=== PATIENT | male | born 1935 | race Caucasian/White ===

== ENCOUNTER 2017-06-16 15:30 | Inpatient (IN) | payer MEDICARE ==
[~2017-06-16] VITALS: Ht 188 cm; Wt 89.0 kg
[2017-06-16 15:55] VITALS: BP 93/66
[2017-06-16] MEDS ORDERED: ACETAMINOPHEN 325 MG TABLET PO PRN (16:30)
[2017-06-16] MEDS ORDERED: MAGNESIUM HYDROXIDE 2,400 MG/30 ML ORAL.SUSP. PO PRN (16:30)
[2017-06-16] MEDS ORDERED: METHYL SALICYLATE/MENTHOL TOPICAL OINTMENT 29GM TUBE. TP PRN (16:30)
[2017-06-16] MEDS ORDERED: MAG HYDROX/AL HYDROX/SIMETH 30 ML ORAL.SUSP PO PRN (16:30)
[2017-06-16] MEDS ORDERED: ASPI-630 PO (17:24)
[2017-06-16] MEDS ORDERED: DILT180C29 PO (17:24)
[2017-06-16] MEDS ORDERED: CARV6.252 PO (17:24)
[2017-06-16] MEDS ORDERED: ISOS30TA4 PO (17:24)
[2017-06-16] MEDS ORDERED: PANT40TA3 PO (17:24)
[2017-06-16] MEDS ORDERED: NITR0.4T22 SL (17:24)
[2017-06-16] MEDS ORDERED: TRAZ-90 PO (17:24)
[2017-06-16] MEDS ORDERED: WARF-31 PO (17:24)
[2017-06-16] MEDS ORDERED: NITROGLYCERIN SUBLINGUAL 0.4 MG BOTTLE OF 25. SL PRN (17:30)
[2017-06-16] MEDS: WARFARIN 5 MG TABLET. PO SCH (20:01)
[2017-06-16] MEDS: traZODone 100 MG TABLET. PO SCH (20:01)
--- NOTE | 2017-06-16 20:46 | PDOC ---
Exam Note: Junior Note: Please also refer to the separate dictated note~for this date of service dictated separately.~Patient seen individually. Discussed the patient with Nursing staff reviewed the chart.~Reviewed interim history and current functioning. Reviewed vital signs,~Labs/ Radiology~and current medications noted below. Continue current treatment with the changes noted in the dictated addendum note Assessment: Vital Signs: Vital Signs Date Time Temp Pulse Resp B/P (MAP) Pulse Ox O2 Delivery O2 Flow Rate FiO2 06/16/17 15:55 97.0 74 16 93/66 (75) 95 Labs: Laboratory Tests Test 06/16/17 16:55 06/16/17 18:00 Magnesium Level 2.0 mg/dL (1.8-2.4) Prothrombin Time 16.2 SEC (9.4-11.4) H Prothrombin Time INR 1.6 (0.9-1.1) H Current Medications: Meds: Current Medications Acetaminophen (Tylenol) 650 mg PRN Q6HRS PRN PO PAIN / TEMP; Start 06/16/17 at 16:30 Multi-Ingredient Ointment (Analgesic [place]) 1 pavel PRN QID PRN TP MUSCLE PAIN; Start 06/16/17 at 16:30 Al Hydroxide/Mg Hydroxide (Mylanta Plus Xs) 15 ml PRN AFTMEALHC PRN PO DYSPEPSIA; Start 06/16/17 at 16:30 Magnesium Hydroxide (Milk Of Magnesia) 2,400 mg PRN QHS PRN PO CONSTIPATION; Start 06/16/17 at 16:30 Isosorbide Mononitrate (Imdur) 30 mg DAILY PO ; Start 06/17/17 at 09:00 Nitroglycerin (Nitrostat) 0.4 mg PRN Q5MIN PRN SL CHEST PAIN; Start 06/16/17 at 17:30 Aspirin (Children'S Aspirin) 81 mg DAILYWBKFT PO ; Start 06/17/17 at 08:00 Carvedilol (Coreg) 6.25 mg DAILY08 PO ; Start 06/17/17 at 08:00 Diltiazem HCl (Cardizem 24hr Cd) 180 mg DAILY PO ; Start 06/17/17 at 09:00 Pantoprazole Sodium (Protonix) 40 mg DAILYAC PO ; Start 06/17/17 at 07:30 Trazodone HCl (Desyrel) 100 mg QHS PO Last administered on 06/16/17at 20:01; Start 06/16/17 at 21:00 Warfarin Sodium (Coumadin) 5 mg DAILY@1600 PO Last administered on 06/16/17at 20 :01; Start 06/16/17 at 19:30 Warfarin Sodium (Coumadin Per Pharmacy) 1 each PRN DAILY PRN MC SEE COMMENTS Last administered on 06/16/17at 19:30; Start 06/16/17 at 18:00 Active Scripts Active Reported Trazodone Hcl 100 Mg Tablet 100 Mg PO QHS Diltiazem 24HR Cd (Diltiazem Hcl) 180 Mg Cap.er.24h 180 Mg PO DAILY Warfarin Sodium 5 Mg Tablet 5 Mg PO DAILY16 Protonix (Pantoprazole Sodium) 40 Mg Tablet.dr 40 Mg PO DAILYAC NITROGLYCERIN SubLingual (Nitroglycerin) 0.4 Mg Tab.subl 0.4 Mg SL PRN Q5MIN PRN Isosorbide Mononitrate Er (Isosorbide Mononitrate) 30 Mg Tab.er.24h 30 Mg PO DAILY Carvedilol 6.25 Mg Tablet 6.25 Mg PO DAILY08 Aspirin 81 Mg Tab.chew 81 Mg PO DAILY I have reviewed the current psychotropics carefully including drug interactions. Risk benefit ratio favors no change other than as noted in my dictated progress note. Diagnosis: Problems: (1) MDD (major depressive disorder) HEMANT GUO MD June 16, 2017 20:46
[2017-06-17 01:08] LABS: T3 TOTAL 64 ng/dL (71-180)
[2017-06-17 02:07] LABS: HEMOGLOBIN A1C 5.5 % (4.8-5.6)
[2017-06-17 05:54] VITALS: BP 119/70
[2017-06-17] MEDS: PANTOPRAZOLE 40 MG TABLET. PO SCH ×2 (07:30→09:05)
[2017-06-17] MEDS: ASPIRIN 81 MG TAB.CHEW PO SCH ×2 (08:00→09:05)
[2017-06-17] MEDS: ISOSORBIDE MONONITRATE ER 30 MG TAB.ER.24H PO SCH (09:00)
[2017-06-17] MEDS: CARVEDILOL 6.25 MG TABLET PO SCH (09:05)
[2017-06-17 11:10] LABS: THYROID STIM HORMONE (TSH) 1.744 uIU/mL (0.358-3.740)
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
[2017-06-17 16:06] VITALS: BP 116/73
[2017-06-17] MEDS: WARFARIN 5 MG TABLET. PO SCH (16:11)
[2017-06-17] MEDS: traZODone 100 MG TABLET. PO SCH (21:20)
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
--- NOTE | 2017-06-17 22:50 | PDOC ---
Exam Note: Junior Note: Please also refer to the separate dictated note~for this date of service dictated separately.~Patient seen individually. Discussed the patient with Nursing staff reviewed the chart.~Reviewed interim history and current functioning. Reviewed vital signs,~Labs/ Radiology~and current medications noted below. Continue current treatment with the changes noted in the dictated addendum note Assessment: Vital Signs: Vital Signs Date Time Temp Pulse Resp B/P (MAP) Pulse Ox O2 Delivery O2 Flow Rate FiO2 06/17/17 16:06 97.9 52 18 116/73 (87) 96 I&O Intake and Output 06/17/17 07:00 Intake Total 480 ml Balance 480 ml Intake Oral 480 ml Labs: Laboratory Tests Test 06/17/17 08:14 Prothrombin Time 17.7 SEC (9.4-11.4) H Prothrombin Time INR 1.7 (0.9-1.1) H Current Medications: Meds: Current Medications Acetaminophen (Tylenol) 650 mg PRN Q6HRS PRN PO PAIN / TEMP; Start 06/16/17 at 16:30 Multi-Ingredient Ointment (Analgesic [place]) 1 pavel PRN QID PRN TP MUSCLE PAIN; Start 06/16/17 at 16:30 Al Hydroxide/Mg Hydroxide (Mylanta Plus Xs) 15 ml PRN AFTMEALHC PRN PO DYSPEPSIA; Start 06/16/17 at 16:30 Magnesium Hydroxide (Milk Of Magnesia) 2,400 mg PRN QHS PRN PO CONSTIPATION; Start 06/16/17 at 16:30 Isosorbide Mononitrate (Imdur) 30 mg DAILY PO ; Start 06/17/17 at 09:00 Nitroglycerin (Nitrostat) 0.4 mg PRN Q5MIN PRN SL CHEST PAIN; Start 06/16/17 at 17:30 Aspirin (Children'S Aspirin) 81 mg DAILYWBKFT PO ; Start 06/17/17 at 08:00 Carvedilol (Coreg) 6.25 mg DAILY08 PO Last administered on 06/17/17at 09:05; Start 06/17/17 at 08:00 Diltiazem HCl (Cardizem 24hr Cd) 180 mg DAILY PO ; Start 06/17/17 at 09:00 Pantoprazole Sodium (Protonix) 40 mg DAILYAC PO ; Start 06/17/17 at 07:30 Trazodone HCl (Desyrel) 100 mg QHS PO Last administered on 06/17/17at 21:20; Start 06/16/17 at 21:00 Warfarin Sodium (Coumadin) 5 mg DAILY@1600 PO Last administered on 06/17/17at 16 :11; Start 06/16/17 at 19:30 Warfarin Sodium (Coumadin Per Pharmacy) 1 each PRN DAILY PRN MC SEE COMMENTS Last administered on 06/17/17at 09:15; Start 06/16/17 at 18:00 Sertraline HCl (Zoloft) 25 mg DAILY PO ; Start 06/18/17 at 09:00 Active Scripts Active Reported Trazodone Hcl 100 Mg Tablet 100 Mg PO QHS Diltiazem 24HR Cd (Diltiazem Hcl) 180 Mg Cap.er.24h 180 Mg PO DAILY Warfarin Sodium 5 Mg Tablet 5 Mg PO DAILY16 Protonix (Pantoprazole Sodium) 40 Mg Tablet.dr 40 Mg PO DAILYAC NITROGLYCERIN SubLingual (Nitroglycerin) 0.4 Mg Tab.subl 0.4 Mg SL PRN Q5MIN PRN Isosorbide Mononitrate Er (Isosorbide Mononitrate) 30 Mg Tab.er.24h 30 Mg PO DAILY Carvedilol 6.25 Mg Tablet 6.25 Mg PO DAILY08 Aspirin 81 Mg Tab.chew 81 Mg PO DAILY I have reviewed the current psychotropics carefully including drug interactions. Risk benefit ratio favors no change other than as noted in my dictated progress note. Diagnosis: Problems: (1) MDD (major depressive disorder) (2) Anxiety disorder HEMANT GUO MD June 17, 2017 22:50
[2017-06-18 05:34] VITALS: BP 122/70
--- NOTE | 2017-06-18 07:30 | PN ---
DATE: 06/17/2017 PSYCHIATRIC PROGRESS NOTE This note covers elements not covered in my initial note 06/17/2017. SUBJECTIVE: The patient was seen individually evening of 06/17/2017 Per nursing report, the patient slept 6-3/4 hours previous evening. Has been tearful, anxious, wanting to go home because he does not want his to pass away without him there. This is understandable, but the suicidal ideation that has prompted this admission were quite intense and he had a definite plan to end his life and was planning to use a kitchen knife. I have addressed this with him. His daughter visited [place] and son-in-law Leonardo visited as well. The patient was better after that. REVIEW OF SYSTEMS: No CV, , pulmonary, eye system symptoms on review. MENTAL STATUS EXAM: Oriented to himself and situation. Speech is coherent, abstraction fair, computation impaired, language function intact, attention span short. Mood and affect depressed , anxious. IMPRESSION: Unchanged from initial note. PLAN: Start Zoloft 25 mg a day. Continue trazodone 100 mg at bedtime. Rest unchanged. We will defer to social service staff to coordinate with family about discharge plans early part of next week given the patient's request to be with his , but we would like to make sure he is stable and not suicidal prior to discharge. MAN Jeffrey GUO MD DR: MARVIN/ting JOB#: [id number] / [id number]
[2017-06-18] MEDS: ISOSORBIDE MONONITRATE ER 30 MG TAB.ER.24H PO SCH (09:00)
[2017-06-18] MEDS: ASPIRIN 81 MG TAB.CHEW PO SCH (10:20)
[2017-06-18] MEDS: PANTOPRAZOLE 40 MG TABLET. PO SCH (10:20)
[2017-06-18] MEDS: CARVEDILOL 6.25 MG TABLET PO SCH (10:21)
[2017-06-18] MEDS: SERTRALINE 25 MG TABLET. PO SCH (14:17)
[2017-06-18] MEDS ORDERED: WARFARIN 3 MG TABLET. PO ONE (16:00)
[2017-06-18 16:45] VITALS: BP 129/80
[2017-06-18] MEDS: traZODone 100 MG TABLET. PO SCH (20:13)
--- NOTE | 2017-06-18 20:50 | PDOC ---
Exam Note: Junior Note: Please also refer to the separate dictated note~for this date of service dictated separately.~Patient seen individually. Discussed the patient with Nursing staff reviewed the chart.~Reviewed interim history and current functioning. Reviewed vital signs,~Labs/ Radiology~and current medications noted below. Continue current treatment with the changes noted in the dictated addendum note Assessment: Vital Signs: Vital Signs Date Time Temp Pulse Resp B/P (MAP) Pulse Ox O2 Delivery O2 Flow Rate FiO2 06/18/17 16:45 96.2 83 18 129/80 (96) 95 I&O Intake and Output 06/18/17 07:00 Intake Total 360 ml Balance 360 ml Intake Oral 360 ml Labs: Laboratory Tests Test 06/18/17 07:56 Prothrombin Time 22.0 SEC (9.4-11.4) H Prothrombin Time INR 2.2 (0.9-1.1) H Current Medications: Meds: Current Medications Acetaminophen (Tylenol) 650 mg PRN Q6HRS PRN PO PAIN / TEMP; Start 06/16/17 at 16:30 Multi-Ingredient Ointment (Analgesic [place]) 1 pavel PRN QID PRN TP MUSCLE PAIN; Start 06/16/17 at 16:30 Al Hydroxide/Mg Hydroxide (Mylanta Plus Xs) 15 ml PRN AFTMEALHC PRN PO DYSPEPSIA; Start 06/16/17 at 16:30 Magnesium Hydroxide (Milk Of Magnesia) 2,400 mg PRN QHS PRN PO CONSTIPATION; Start 06/16/17 at 16:30 Isosorbide Mononitrate (Imdur) 30 mg DAILY PO ; Start 06/17/17 at 09:00 Nitroglycerin (Nitrostat) 0.4 mg PRN Q5MIN PRN SL CHEST PAIN; Start 06/16/17 at 17:30 Aspirin (Children'S Aspirin) 81 mg DAILYWBKFT PO Last administered on at 10:20; Start 06/17/17 at 08:00 Carvedilol (Coreg) 6.25 mg DAILY08 PO Last administered on 06/18/17at 10:21; Start 06/17/17 at 08:00 Diltiazem HCl (Cardizem 24hr Cd) 180 mg DAILY PO ; Start 06/17/17 at 09:00 Pantoprazole Sodium (Protonix) 40 mg DAILYAC PO Last administered on 06/18/17 10:20; Start 06/17/17 at 07:30 Trazodone HCl (Desyrel) 100 mg QHS PO Last administered on 06/18/17at 20:13; Start 06/16/17 at 21:00 Warfarin Sodium (Coumadin) 5 mg DAILY@1600 PO Last administered on 06/17/17at 16 :11; Start 06/16/17 at 19:30; Stop 06/18/17 at 10:25; Status DC Warfarin Sodium (Coumadin Per Pharmacy) 1 each PRN DAILY PRN MC SEE COMMENTS Last administered on 06/17/17at 09:15; Start 06/16/17 at 18:00 Sertraline HCl (Zoloft) 25 mg DAILY PO Last administered on 06/18/17at 14:17; Start 06/18/17 at 09:00 Warfarin Sodium (Coumadin) 3 mg 1X WARF ONCE PO Last administered on at 17:02; Start 06/18/17 at 16:00; Stop 06/18/17 at 16:01; Status DC Active Scripts Active Reported Trazodone Hcl 100 Mg Tablet 100 Mg PO QHS Diltiazem 24HR Cd (Diltiazem Hcl) 180 Mg Cap.er.24h 180 Mg PO DAILY Warfarin Sodium 5 Mg Tablet 5 Mg PO DAILY16 Protonix (Pantoprazole Sodium) 40 Mg Tablet.dr 40 Mg PO DAILYAC NITROGLYCERIN SubLingual (Nitroglycerin) 0.4 Mg Tab.subl 0.4 Mg SL PRN Q5MIN PRN Isosorbide Mononitrate Er (Isosorbide Mononitrate) 30 Mg Tab.er.24h 30 Mg PO DAILY Carvedilol 6.25 Mg Tablet 6.25 Mg PO DAILY08 Aspirin 81 Mg Tab.chew 81 Mg PO DAILY I have reviewed the current psychotropics carefully including drug interactions. Risk benefit ratio favors no change other than as noted in my dictated progress note. Diagnosis: Problems: (1) MDD (major depressive disorder) (2) Anxiety disorder (3) Suicidal ideation HEMANT GUO MD June 18, 2017 20:50
[2017-06-19 05:47] VITALS: BP 134/79
[2017-06-19] MEDS: CARVEDILOL 6.25 MG TABLET PO SCH (09:06)
[2017-06-19] MEDS: ASPIRIN 81 MG TAB.CHEW PO SCH (09:06)
[2017-06-19] MEDS: PANTOPRAZOLE 40 MG TABLET. PO SCH (09:06)
[2017-06-19] MEDS: SERTRALINE 25 MG TABLET. PO SCH (09:07)
[2017-06-19] MEDS: ISOSORBIDE MONONITRATE ER 30 MG TAB.ER.24H PO SCH (09:07)
[2017-06-19 15:52] VITALS: BP 123/81
[2017-06-19] MEDS ORDERED: WARFARIN 4 MG TABLET. PO ONE (16:00)
[2017-06-19] MEDS: traZODone 100 MG TABLET. PO SCH (19:54)
--- NOTE | 2017-06-19 20:51 | PDOC ---
Exam Note: Junior Note: Please also refer to the separate dictated note~for this date of service dictated separately.~Patient seen individually. Discussed the patient with Nursing staff reviewed the chart.~Reviewed interim history and current functioning. Reviewed vital signs,~Labs/ Radiology~and current medications noted below. Continue current treatment with the changes noted in the dictated addendum note Assessment: Vital Signs: Vital Signs Date Time Temp Pulse Resp B/P (MAP) Pulse Ox O2 Delivery O2 Flow Rate FiO2 06/19/17 15:52 97.2 73 20 123/81 (95) 100 06/19/17 05:47 Room Air I&O Intake and Output 06/19/17 07:00 Intake Total 600 ml Balance 600 ml Intake Oral 600 ml Labs: Laboratory Tests Test 06/19/17 07:15 Prothrombin Time 23.2 SEC (9.4-11.4) H Prothrombin Time INR 2.3 (0.9-1.1) H Current Medications: Meds: Current Medications Acetaminophen (Tylenol) 650 mg PRN Q6HRS PRN PO PAIN / TEMP; Start 06/16/17 at 16:30 Multi-Ingredient Ointment (Analgesic [place]) 1 pavel PRN QID PRN TP MUSCLE PAIN; Start 06/16/17 at 16:30 Al Hydroxide/Mg Hydroxide (Mylanta Plus Xs) 15 ml PRN AFTMEALHC PRN PO DYSPEPSIA; Start 06/16/17 at 16:30 Magnesium Hydroxide (Milk Of Magnesia) 2,400 mg PRN QHS PRN PO CONSTIPATION; Start 06/16/17 at 16:30 Isosorbide Mononitrate (Imdur) 30 mg DAILY PO Last administered on 06/19/17at 09 :07; Start 06/17/17 at 09:00 Nitroglycerin (Nitrostat) 0.4 mg PRN Q5MIN PRN SL CHEST PAIN; Start 06/16/17 at 17:30 Aspirin (Children'S Aspirin) 81 mg DAILYWBKFT PO Last administered on at 09:06; Start 06/17/17 at 08:00 Carvedilol (Coreg) 6.25 mg DAILY08 PO Last administered on 06/19/17at 09:06; Start 06/17/17 at 08:00 Diltiazem HCl (Cardizem 24hr Cd) 180 mg DAILY PO Last administered on 09:07; Start 06/17/17 at 09:00 Pantoprazole Sodium (Protonix) 40 mg DAILYAC PO Last administered on 06/19/17at 09:06; Start 06/17/17 at 07:30 Trazodone HCl (Desyrel) 100 mg QHS PO Last administered on 06/19/17at 19:54; Start 06/16/17 at 21:00 Warfarin Sodium (Coumadin) 5 mg DAILY@1600 PO Last administered on 06/17/17at 16 :11; Start 06/16/17 at 19:30; Stop 06/18/17 at 10:25; Status DC Warfarin Sodium (Coumadin Per Pharmacy) 1 each PRN DAILY PRN MC SEE COMMENTS Last administered on 06/19/17at 14:51; Start 06/16/17 at 18:00 Sertraline HCl (Zoloft) 25 mg DAILY PO Last administered on 06/19/17at 09:07; Start 06/18/17 at 09:00; Stop 06/19/17 at 18:40; Status DC Warfarin Sodium (Coumadin) 3 mg 1X WARF ONCE PO Last administered on at 17:02; Start 06/18/17 at 16:00; Stop 06/18/17 at 16:01; Status DC Warfarin Sodium (Coumadin) 4 mg 1X WARF ONCE PO Last administered on at 16:58; Start 06/19/17 at 16:00; Stop 06/19/17 at 16:01; Status DC Sertraline HCl (Zoloft) 50 mg DAILY PO ; Start 06/20/17 at 09:00 Active Scripts Active Reported Trazodone Hcl 100 Mg Tablet 100 Mg PO QHS Diltiazem 24HR Cd (Diltiazem Hcl) 180 Mg Cap.er.24h 180 Mg PO DAILY Warfarin Sodium 5 Mg Tablet 5 Mg PO DAILY16 Protonix (Pantoprazole Sodium) 40 Mg Tablet.dr 40 Mg PO DAILYAC NITROGLYCERIN SubLingual (Nitroglycerin) 0.4 Mg Tab.subl 0.4 Mg SL PRN Q5MIN PRN Isosorbide Mononitrate Er (Isosorbide Mononitrate) 30 Mg Tab.er.24h 30 Mg PO DAILY Carvedilol 6.25 Mg Tablet 6.25 Mg PO DAILY08 Aspirin 81 Mg Tab.chew 81 Mg PO DAILY I have reviewed the current psychotropics carefully including drug interactions. Risk benefit ratio favors no change other than as noted in my dictated progress note. Diagnosis: Problems: (1) MDD (major depressive disorder) (2) Anxiety disorder (3) Suicidal ideation HEMANT GUO MD June 19, 2017 20:51
--- NOTE | 2017-06-20 05:01 | PN ---
DATE: 06/18/2017 This is a late entry, 06/18/2017, covers the elements not covered in my initial note, 06/18/2017. SUBJECTIVE: I met with the patient in the evening. Overall, the patient remains somewhat withdrawn, depressed, but denies suicidal ideation. He had a good night the previous night and during the day, he has done better. Affect is somewhat improved. He had visitors came to know that his is stable. REVIEW OF SYSTEMS: No CV, , pulmonary, eye, ENT system symptoms on review. MENTAL STATUS EXAM: Reasonably oriented. Speech has some latency, coherent. Abstraction fair, computation impaired, language function intact. Mood and affect still somewhat depressed, but improved. LABORATORY DATA: Reviewed. IMPRESSION: Major depressive disorder in partial remission. Rest unchanged. PLAN: Continue trazodone along with Zoloft, may need to increase the later gradually. MAN Jeffrey GUO MD DR: MARVIN/ting JOB#: [id number] / [id number]
[2017-06-20 06:20] VITALS: BP 120/64
[2017-06-20] MEDS: ASPIRIN 81 MG TAB.CHEW PO SCH (08:49)
[2017-06-20] MEDS: CARVEDILOL 6.25 MG TABLET PO SCH (08:50)
[2017-06-20] MEDS: ISOSORBIDE MONONITRATE ER 30 MG TAB.ER.24H PO SCH (08:50)
[2017-06-20] MEDS: PANTOPRAZOLE 40 MG TABLET. PO SCH (08:50)
[2017-06-20] MEDS: SERTRALINE 50 MG TABLET. PO SCH (08:52)
[2017-06-20 09:35] LABS: HEMATOCRIT 39.9 % (39.0-53.0); HEMOGLOBIN 13.5 g/dL (13.0-17.5); RED BLOOD COUNT 4.54 x10^6/uL (4.30-5.70); RED CELL DISTRIBUTION WIDTH 14.6 % (11.5-14.5); WHITE BLOOD COUNT 6.4 x10^3/uL (4.0-11.0)
[2017-06-20] MEDS: WARFARIN 4 MG TABLET. PO SCH (16:09)
[2017-06-20 16:32] VITALS: BP 120/68
--- NOTE | 2017-06-20 18:32 | PN ---
DATE: 06/19/2017 This is a late entry 06/19/2017 covers elements not covered in my initial note 06/19/2017. I met with the patient in the evening of 06/19/2017. The patient slept 6-3/4 hours previous evening, remains somewhat dysphoric, but denies active suicidal ideation. He is still ruminating about the ill health of his and I addressed this with him individually. REVIEW OF SYSTEMS: No CV, , pulmonary, eye system symptoms on review. MENTAL STATUS EXAM: Oriented to himself and situation. Speech has some latency, coherent. Abstraction fair, computation impaired, language function intact. No active suicidal ideation. Mood and affect still somewhat dysphoric. LABORATORY DATA: Reviewed. IMPRESSION: Major depressive disorder in partial remission, adjustment disorder with depressed mood and anxiety. Rest unchanged. PLAN: Increase Zoloft to 50 mg a day. Continue rest unchanged from initial note. MAN Jeffrey GUO MD DR: MARVIN/ting JOB#: [id number] / [id number]
--- NOTE | 2017-06-20 20:18 | PDOC ---
Exam Note: Junior Note: Please also refer to the separate dictated note~for this date of service dictated separately.~Patient seen individually. Discussed the patient with Nursing staff reviewed the chart.~Reviewed interim history and current functioning. Reviewed vital signs,~Labs/ Radiology~and current medications noted below. Continue current treatment with the changes noted in the dictated addendum note Assessment: Vital Signs: Vital Signs Date Time Temp Pulse Resp B/P (MAP) Pulse Ox O2 Delivery O2 Flow Rate FiO2 06/20/17 16:32 97.1 66 20 120/68 (85) 96 06/19/17 05:47 Room Air I&O Intake and Output 06/20/17 07:00 Intake Total 1200 ml Balance 1200 ml Intake Oral 1200 ml Labs: Laboratory Tests Test 06/20/17 07:18 White Blood Count 6.4 x10^3/uL (4.0-11.0) Red Blood Count 4.54 x10^6/uL (4.30-5.70) Hemoglobin 13.5 g/dL (13.0-17.5) Hematocrit 39.9 % (39.0-53.0) Mean Corpuscular Volume 88 fL (79-100) Mean Corpuscular Hemoglobin 30 pg (25-35) Mean Corpuscular Hemoglobin Concent 34 g/dL (31-37) Red Cell Distribution Width 14.6 % (11.5-14.5) H Platelet Count 173 x10^3/uL (140-400) Prothrombin Time 22.9 SEC (9.4-11.4) H Prothrombin Time INR 2.3 (0.9-1.1) H Current Medications: Meds: Current Medications Acetaminophen (Tylenol) 650 mg PRN Q6HRS PRN PO PAIN / TEMP; Start 06/16/17 at 16:30 Multi-Ingredient Ointment (Analgesic [place]) 1 pavel PRN QID PRN TP MUSCLE PAIN; Start 06/16/17 at 16:30 Al Hydroxide/Mg Hydroxide (Mylanta Plus Xs) 15 ml PRN AFTMEALHC PRN PO DYSPEPSIA; Start 06/16/17 at 16:30 Magnesium Hydroxide (Milk Of Magnesia) 2,400 mg PRN QHS PRN PO CONSTIPATION; Start 06/16/17 at 16:30 Isosorbide Mononitrate (Imdur) 30 mg DAILY PO Last administered on 06/20/17at 08 :50; Start 06/17/17 at 09:00 Nitroglycerin (Nitrostat) 0.4 mg PRN Q5MIN PRN SL CHEST PAIN; Start 06/16/17 at 17:30 Aspirin (Children'S Aspirin) 81 mg DAILYWBKFT PO Last administered on at 08:49; Start 06/17/17 at 08:00 Carvedilol (Coreg) 6.25 mg DAILY08 PO Last administered on 06/20/17at 08:50; Start 06/17/17 at 08:00 Diltiazem HCl (Cardizem 24hr Cd) 180 mg DAILY PO Last administered on at 08:50; Start 06/17/17 at 09:00 Pantoprazole Sodium (Protonix) 40 mg DAILYAC PO Last administered on 06/20/17at 08:50; Start 06/17/17 at 07:30 Trazodone HCl (Desyrel) 100 mg QHS PO Last administered on 06/19/17at 19:54; Start 06/16/17 at 21:00 Warfarin Sodium (Coumadin) 5 mg DAILY@1600 PO Last administered on 06/17/17at 16 :11; Start 06/16/17 at 19:30; Stop 06/18/17 at 10:25; Status DC Warfarin Sodium (Coumadin Per Pharmacy) 1 each PRN DAILY PRN MC SEE COMMENTS Last administered on 06/20/17at 10:48; Start 06/16/17 at 18:00 Sertraline HCl (Zoloft) 25 mg DAILY PO Last administered on 06/19/17at 09:07; Start 06/18/17 at 09:00; Stop 06/19/17 at 18:40; Status DC Warfarin Sodium (Coumadin) 3 mg 1X WARF ONCE PO Last administered on at 17:02; Start 06/18/17 at 16:00; Stop 06/18/17 at 16:01; Status DC Warfarin Sodium (Coumadin) 4 mg 1X WARF ONCE PO Last administered on at 16:58; Start 06/19/17 at 16:00; Stop 06/19/17 at 16:01; Status DC Sertraline HCl (Zoloft) 50 mg DAILY PO Last administered on 06/20/17at 08:52; Start 06/20/17 at 09:00 Warfarin Sodium (Coumadin) 4 mg DAILY16 PO Last administered on 06/20/17at 16:09 ; Start 06/20/17 at 16:00 Active Scripts Active Reported Trazodone Hcl 100 Mg Tablet 100 Mg PO QHS Diltiazem 24HR Cd (Diltiazem Hcl) 180 Mg Cap.er.24h 180 Mg PO DAILY Warfarin Sodium 5 Mg Tablet 5 Mg PO DAILY16 Protonix (Pantoprazole Sodium) 40 Mg Tablet.dr 40 Mg PO DAILYAC NITROGLYCERIN SubLingual (Nitroglycerin) 0.4 Mg Tab.subl 0.4 Mg SL PRN Q5MIN PRN Isosorbide Mononitrate Er (Isosorbide Mononitrate) 30 Mg Tab.er.24h 30 Mg PO DAILY Carvedilol 6.25 Mg Tablet 6.25 Mg PO DAILY08 Aspirin 81 Mg Tab.chew 81 Mg PO DAILY I have reviewed the current psychotropics carefully including drug interactions. Risk benefit ratio favors no change other than as noted in my dictated progress note. Diagnosis: Problems: (1) MDD (major depressive disorder) (2) Anxiety disorder (3) Suicidal ideation HEMANT GUO MD June 20, 2017 20:18
[2017-06-20] MEDS: traZODone 100 MG TABLET. PO SCH (20:42)
[2017-06-21 06:01] VITALS: BP 149/80
[2017-06-21] MEDS: ISOSORBIDE MONONITRATE ER 30 MG TAB.ER.24H PO SCH (08:26)
[2017-06-21] MEDS: ASPIRIN 81 MG TAB.CHEW PO SCH (08:26)
[2017-06-21] MEDS: PANTOPRAZOLE 40 MG TABLET. PO SCH (08:27)
[2017-06-21] MEDS: SERTRALINE 50 MG TABLET. PO SCH (08:27)
[2017-06-21] MEDS: CARVEDILOL 6.25 MG TABLET PO SCH (08:28)
[2017-06-21] MEDS: WARFARIN 4 MG TABLET. PO SCH (16:21)
[2017-06-21 18:17] VITALS: BP 122/68
[2017-06-21] MEDS: traZODone 100 MG TABLET. PO SCH (20:14)
--- NOTE | 2017-06-21 22:11 | PDOC ---
Exam Note: Junior Note: Please also refer to the separate dictated note~for this date of service dictated separately.~Patient seen individually. Discussed the patient with Nursing staff reviewed the chart.~Reviewed interim history and current functioning. Reviewed vital signs,~Labs/ Radiology~and current medications noted below. Continue current treatment with the changes noted in the dictated addendum note Assessment: Vital Signs: Vital Signs Date Time Temp Pulse Resp B/P (MAP) Pulse Ox O2 Delivery O2 Flow Rate FiO2 06/21/17 18:17 97.6 76 18 122/68 (86) 99 06/19/17 05:47 Room Air I&O Intake and Output 06/21/17 07:00 Intake Total 1200 ml Balance 1200 ml Intake Oral 1200 ml Current Medications: Meds: Current Medications Acetaminophen (Tylenol) 650 mg PRN Q6HRS PRN PO PAIN / TEMP; Start 06/16/17 at 16:30 Multi-Ingredient Ointment (Analgesic [place]) 1 pavel PRN QID PRN TP MUSCLE PAIN; Start 06/16/17 at 16:30 Al Hydroxide/Mg Hydroxide (Mylanta Plus Xs) 15 ml PRN AFTMEALHC PRN PO DYSPEPSIA; Start 06/16/17 at 16:30 Magnesium Hydroxide (Milk Of Magnesia) 2,400 mg PRN QHS PRN PO CONSTIPATION; Start 06/16/17 at 16:30 Isosorbide Mononitrate (Imdur) 30 mg DAILY PO Last administered on 06/21/17at 08 :26; Start 06/17/17 at 09:00 Nitroglycerin (Nitrostat) 0.4 mg PRN Q5MIN PRN SL CHEST PAIN; Start 06/16/17 at 17:30 Aspirin (Children'S Aspirin) 81 mg DAILYWBKFT PO Last administered on at 08:26; Start 06/17/17 at 08:00 Carvedilol (Coreg) 6.25 mg DAILY08 PO Last administered on 06/21/17at 08:28; Start 06/17/17 at 08:00 Diltiazem HCl (Cardizem 24hr Cd) 180 mg DAILY PO Last administered on at 08:23; Start 06/17/17 at 09:00 Pantoprazole Sodium (Protonix) 40 mg DAILYAC PO Last administered on 06/21/17 08:27; Start 06/17/17 at 07:30 Trazodone HCl (Desyrel) 100 mg QHS PO Last administered on 06/21/17 20:14; Start 06/16/17 at 21:00 Warfarin Sodium (Coumadin) 5 mg DAILY@1600 PO Last administered on 06/17/17 16 :11; Start 06/16/17 at 19:30; Stop 06/18/17 at 10:25; Status DC Warfarin Sodium (Coumadin Per Pharmacy) 1 each PRN DAILY PRN MC SEE COMMENTS Last administered on 06/20/17 10:48; Start 06/16/17 at 18:00 Sertraline HCl (Zoloft) 25 mg DAILY PO Last administered on 06/19/17 09:07; Start 06/18/17 at 09:00; Stop 06/19/17 at 18:40; Status DC Warfarin Sodium (Coumadin) 3 mg 1X WARF ONCE PO Last administered on 17:02; Start 06/18/17 at 16:00; Stop 06/18/17 at 16:01; Status DC Warfarin Sodium (Coumadin) 4 mg 1X WARF ONCE PO Last administered on at 16:58; Start 06/19/17 at 16:00; Stop 06/19/17 at 16:01; Status DC Sertraline HCl (Zoloft) 50 mg DAILY PO Last administered on 06/21/17 08:27; Start 06/20/17 at 09:00; Stop 06/21/17 at 13:12; Status DC Warfarin Sodium (Coumadin) 4 mg DAILY16 PO Last administered on 06/21/17at 16:21 ; Start 06/20/17 at 16:00 Sertraline HCl (Zoloft) 75 mg DAILY PO ; Start 06/22/17 at 09:00 Active Scripts Active Reported Trazodone Hcl 100 Mg Tablet 100 Mg PO QHS Diltiazem 24HR Cd (Diltiazem Hcl) 180 Mg Cap.er.24h 180 Mg PO DAILY Warfarin Sodium 5 Mg Tablet 5 Mg PO DAILY16 Protonix (Pantoprazole Sodium) 40 Mg Tablet.dr 40 Mg PO DAILYAC NITROGLYCERIN SubLingual (Nitroglycerin) 0.4 Mg Tab.subl 0.4 Mg SL PRN Q5MIN PRN Isosorbide Mononitrate Er (Isosorbide Mononitrate) 30 Mg Tab.er.24h 30 Mg PO DAILY Carvedilol 6.25 Mg Tablet 6.25 Mg PO DAILY08 Aspirin 81 Mg Tab.chew 81 Mg PO DAILY I have reviewed the current psychotropics carefully including drug interactions. Risk benefit ratio favors no change other than as noted in my dictated progress note. Diagnosis: Problems: (1) MDD (major depressive disorder) (2) Anxiety disorder (3) Suicidal ideation HEMANT GUO MD June 21, 2017 22:11
--- NOTE | 2017-06-22 01:19 | PN ---
DATE: 06/20/2017 This is a late entry of 06/20/2017 covers elements not covered in my initial note of 06/20/2017. SUBJECTIVE: I met with the patient in the evening. The patient slept 7-1/2 hours, has been calm, still depressed. Denies active suicidal ideation, but is fearful of the loss of his . We addressed this at great length individually. He described having gone to a country school in [facility] [place] [facility]. He stated this was a one room country school and he met his there when he was 16 and she was 14 and they got when he was 19 and she was 17 and now it is overwhelming for him to conceive that he would be losing her after so many years. We discussed the importance of focusing on what she brought to his life and that positive times they spent together and that the loss is a selfish feeling of something he would be missing and he was able to understand that he needs to focus his energy on what is right for her given her medical problems and phase of life. He was reluctantly able to see this. REVIEW OF SYSTEMS: No CV, , pulmonary, eye, ENT system symptoms on review. MENTAL STATUS EXAM: Oriented reasonably. Speech coherent, has some latency. Abstraction fair, computation reasonable, language function intact, attention span short. Mood and affect still dysphoric. No suicidal ideation at this time, but almost tearful at times discussing all of the above. LABORATORY DATA: Reviewed. IMPRESSION: Major depressive disorder, recurrent, adjustment disorder with depressed mood and anxiety. PLAN: Continue psychotropics mentioned in my initial note. May need to increase Zoloft further. MAN Jeffrey GUO MD DR: MARVIN/ting JOB#: [id number] / [id number]
[2017-06-22 05:59] VITALS: BP 129/72
[2017-06-22] MEDS: PANTOPRAZOLE 40 MG TABLET. PO SCH (07:47)
[2017-06-22] MEDS: ASPIRIN 81 MG TAB.CHEW PO SCH (08:21)
[2017-06-22] MEDS: ISOSORBIDE MONONITRATE ER 30 MG TAB.ER.24H PO SCH (08:21)
[2017-06-22] MEDS: CARVEDILOL 6.25 MG TABLET PO SCH (08:22)
[2017-06-22] MEDS: SERTRALINE 50 MG TABLET. PO SCH (08:24)
[2017-06-22] MEDS ORDERED: WARFARIN 2 MG TABLET. PO ONE (16:00)
[2017-06-22 16:42] VITALS: BP 164/72
--- NOTE | 2017-06-22 20:15 | PDOC ---
Exam Note: Junior Note: Please also refer to the separate dictated note~for this date of service dictated separately.~Patient seen individually. Discussed the patient with Nursing staff reviewed the chart.~Reviewed interim history and current functioning. Reviewed vital signs,~Labs/ Radiology~and current medications noted below. Continue current treatment with the changes noted in the dictated addendum note Assessment: Vital Signs: Vital Signs Date Time Temp Pulse Resp B/P (MAP) Pulse Ox O2 Delivery O2 Flow Rate FiO2 06/22/17 16:42 97.3 76 18 164/72 (102) 96 Room Air I&O Intake and Output 06/22/17 07:00 Intake Total 1200 ml Balance 1200 ml Intake Oral 1200 ml # Bowel Movements 1 Labs: Laboratory Tests Test 06/22/17 06:40 Prothrombin Time 28.4 SEC (9.4-11.4) H Prothrombin Time INR 2.8 (0.9-1.1) H Current Medications: Meds: Current Medications Acetaminophen (Tylenol) 650 mg PRN Q6HRS PRN PO PAIN / TEMP; Start 06/16/17 at 16:30 Multi-Ingredient Ointment (Analgesic [place]) 1 pavel PRN QID PRN TP MUSCLE PAIN; Start 06/16/17 at 16:30 Al Hydroxide/Mg Hydroxide (Mylanta Plus Xs) 15 ml PRN AFTMEALHC PRN PO DYSPEPSIA; Start 06/16/17 at 16:30 Magnesium Hydroxide (Milk Of Magnesia) 2,400 mg PRN QHS PRN PO CONSTIPATION; Start 06/16/17 at 16:30 Isosorbide Mononitrate (Imdur) 30 mg DAILY PO Last administered on 06/22/17at 08 :21; Start 06/17/17 at 09:00 Nitroglycerin (Nitrostat) 0.4 mg PRN Q5MIN PRN SL CHEST PAIN; Start 06/16/17 at 17:30 Aspirin (Children'S Aspirin) 81 mg DAILYWBKFT PO Last administered on at 08:21; Start 06/17/17 at 08:00 Carvedilol (Coreg) 6.25 mg DAILY08 PO Last administered on 06/22/17at 08:22; Start 06/17/17 at 08:00 Diltiazem HCl (Cardizem 24hr Cd) 180 mg DAILY PO Last administered on at 08:22; Start 06/17/17 at 09:00 Pantoprazole Sodium (Protonix) 40 mg DAILYAC PO Last administered on 06/22/17at 07:47; Start 06/17/17 at 07:30 Trazodone HCl (Desyrel) 100 mg QHS PO Last administered on 06/21/17at 20:14; Start 06/16/17 at 21:00 Warfarin Sodium (Coumadin) 5 mg DAILY@1600 PO Last administered on 06/17/17at 16 :11; Start 06/16/17 at 19:30; Stop 06/18/17 at 10:25; Status DC Warfarin Sodium (Coumadin Per Pharmacy) 1 each PRN DAILY PRN MC SEE COMMENTS Last administered on 06/22/17at 08:16; Start 06/16/17 at 18:00 Sertraline HCl (Zoloft) 25 mg DAILY PO Last administered on 06/19/17at 09:07; Start 06/18/17 at 09:00; Stop 06/19/17 at 18:40; Status DC Warfarin Sodium (Coumadin) 3 mg 1X WARF ONCE PO Last administered on at 17:02; Start 06/18/17 at 16:00; Stop 06/18/17 at 16:01; Status DC Warfarin Sodium (Coumadin) 4 mg 1X WARF ONCE PO Last administered on at 16:58; Start 06/19/17 at 16:00; Stop 06/19/17 at 16:01; Status DC Sertraline HCl (Zoloft) 50 mg DAILY PO Last administered on 06/21/17at 08:27; Start 06/20/17 at 09:00; Stop 06/21/17 at 13:12; Status DC Warfarin Sodium (Coumadin) 4 mg DAILY16 PO Last administered on 06/21/17at 16:21 ; Start 06/20/17 at 16:00; Stop 06/22/17 at 07:57; Status DC Sertraline HCl (Zoloft) 75 mg DAILY PO Last administered on 06/22/17at 08:24; Start 06/22/17 at 09:00 Warfarin Sodium (Coumadin) 2 mg 1X WARF ONCE PO Last administered on at 16:34; Start 06/22/17 at 16:00; Stop 06/22/17 at 16:01; Status DC Active Scripts Active Reported Trazodone Hcl 100 Mg Tablet 100 Mg PO QHS Diltiazem 24HR Cd (Diltiazem Hcl) 180 Mg Cap.er.24h 180 Mg PO DAILY Warfarin Sodium 5 Mg Tablet 5 Mg PO DAILY16 Protonix (Pantoprazole Sodium) 40 Mg Tablet.dr 40 Mg PO DAILYAC NITROGLYCERIN SubLingual (Nitroglycerin) 0.4 Mg Tab.subl 0.4 Mg SL PRN Q5MIN PRN Isosorbide Mononitrate Er (Isosorbide Mononitrate) 30 Mg Tab.er.24h 30 Mg PO DAILY Carvedilol 6.25 Mg Tablet 6.25 Mg PO DAILY08 Aspirin 81 Mg Tab.chew 81 Mg PO DAILY I have reviewed the current psychotropics carefully including drug interactions. Risk benefit ratio favors no change other than as noted in my dictated progress note. Diagnosis: Problems: (1) MDD (major depressive disorder) (2) Anxiety disorder (3) Suicidal ideation HEMANT GUO MD June 22, 2017 20:15
[2017-06-22] MEDS: traZODone 100 MG TABLET. PO SCH (20:50)
[2017-06-23 05:41] VITALS: BP 143/76
[2017-06-23] MEDS: ASPIRIN 81 MG TAB.CHEW PO SCH (07:38)
[2017-06-23] MEDS: ISOSORBIDE MONONITRATE ER 30 MG TAB.ER.24H PO SCH (07:38)
[2017-06-23] MEDS: PANTOPRAZOLE 40 MG TABLET. PO SCH (07:38)
[2017-06-23] MEDS: SERTRALINE 50 MG TABLET. PO SCH (07:38)
[2017-06-23] MEDS: CARVEDILOL 6.25 MG TABLET PO SCH (07:38)
[2017-06-23] MEDS ORDERED: WARFARIN 3 MG TABLET. PO ONE (16:00)
[2017-06-23 16:18] VITALS: BP 117/57
[2017-06-23] MEDS: traZODone 100 MG TABLET. PO SCH (20:40)
--- NOTE | 2017-06-24 02:43 | PN ---
DATE: 06/21/2017 PSYCHIATRIC PROGRESS NOTE This is a late entry for 06/21/2017, covers elements not covered in my initial note of 06/21/2017. SUBJECTIVE: I met with the patient in the evening and he was staffed at a treatment team meeting with the entire team. He denies suicidal ideation, still depressed, withdrawn, but less so than before. Treatment team meeting reviewed his psychosocial history. He lives with his daughter and son-in-law. REVIEW OF SYSTEMS: No CV, , pulmonary, eye, ENT system symptoms on review. Subjectively he states he feels better, less depressed. MENTAL STATUS EXAM: Reasonably oriented. Speech is coherent, has some latency. Abstraction fair, computation impaired, language function intact. Mood and affect showing improvement. LABORATORY DATA: Reviewed. IMPRESSION: Unchanged from initial note. PLAN: Increase Zoloft to 75 mg a day. Continue trazodone 100 mg at bedtime. MAN Jeffrey GUO MD DR: MARVIN/ting JOB#: [id number] / [id number]
--- NOTE | 2017-06-24 02:46 | PN ---
DATE: 06/22/2017 This late entry 06/22/2017 covers elements not covered in my initial note 06/22/2017. SUBJECTIVE: I met with the patient in the evening. The patient slept 7-1/2 hours. He has been more anxious since his roommate was changed. His daughter visited him and he was smiling with her showing some improvement ability to handle the gradual physical deterioration of his . REVIEW OF SYSTEMS: No CV, , pulmonary, eye system symptoms on review. MENTAL STATUS EXAM: Reasonably oriented. Speech coherent, has some latency. Abstraction fair, computation impaired, language function intact. Mood and affect showing improvement. IMPRESSION: Unchanged from initial note. PLAN: Continue current psychotropics from initial note. MAN Jeffrey GUO MD DR: MARVIN/ting JOB#: [id number] / [id number]
[2017-06-24 06:06] VITALS: BP 165/89
[2017-06-24 07:48] LABS: BASO % 1 % (0-3); EOS # 0.2 x10^3/uL (0.0-0.7); EOS % 4 % (0-3); HEMATOCRIT 39.2 % (39.0-53.0); HEMOGLOBIN 13.4 g/dL (13.0-17.5); LYMPH # 1.6 x10^3/uL (1.0-4.8); LYMPH % 26 % (24-48); MEAN CORPUSCULAR HEMOGLOBIN 30 pg (25-35); MEAN CORPUSCULAR HGB CONC 34 g/dL (31-37); MEAN CORPUSCULAR VOLUME 89 fL (79-100); MONO # 0.4 x10^3/uL (0.0-1.1); MONO % 7 % (0-9); NEUT # 3.8 x10^3uL (1.8-7.7); NEUT % 63 % (31-73); PLATELET COUNT 177 x10^3/uL (140-400); RED BLOOD COUNT 4.43 x10^6/uL (4.30-5.70); RED CELL DISTRIBUTION WIDTH 14.4 % (11.5-14.5); WHITE BLOOD COUNT 6.1 x10^3/uL (4.0-11.0)
[2017-06-24] MEDS: ISOSORBIDE MONONITRATE ER 30 MG TAB.ER.24H PO SCH (08:07)
[2017-06-24] MEDS: CARVEDILOL 6.25 MG TABLET PO SCH (08:07)
[2017-06-24] MEDS: SERTRALINE 50 MG TABLET. PO SCH (08:07)
[2017-06-24 08:08] VITALS: BP 165/89
[2017-06-24] MEDS: ASPIRIN 81 MG TAB.CHEW PO SCH (08:08)
[2017-06-24] MEDS: PANTOPRAZOLE 40 MG TABLET. PO SCH (08:08)
[2017-06-24 08:22] LABS: ALBUMIN 3.7 g/dL (3.4-5.0); CALCIUM 8.9 mg/dL (8.5-10.1); CREATININE 1.5 mg/dL (0.7-1.3); GFR 44.9; POTASSIUM 4.4 mmol/L (3.5-5.1); TOTAL BILIRUBIN 0.8 mg/dL (0.2-1.0); TOTAL PROTEIN 7.3 g/dL (6.4-8.2)
[2017-06-24] MEDS ORDERED: ACET325T9 PO (13:37)
[2017-06-24] MEDS ORDERED: MAG355OR12 PO (13:38)
[2017-06-24] MEDS ORDERED: MAGN2400 PO (13:41)
[2017-06-24] MEDS ORDERED: SERT50TA8 PO (13:46)
[2017-06-24] MEDS ORDERED: WARF3TAB50 PO (13:49)
[2017-06-24] MEDS ORDERED: WARFARIN 3 MG TABLET. PO ONE (14:00)
--- NOTE | 2017-06-24 19:05 | PDOC ---
Exam Note: Junior Note: Please also refer to the separate dictated note~for this date of service dictated separately.~Patient seen individually. Discussed the patient with Nursing staff reviewed the chart.~Reviewed interim history and current functioning. Reviewed vital signs,~Labs/ Radiology~and current medications noted below. Continue current treatment with the changes noted in the dictated addendum note Assessment: Vital Signs: Vital Signs Date Time Temp Pulse Resp B/P (MAP) Pulse Ox O2 Delivery O2 Flow Rate FiO2 06/24/17 08:08 87 165/89 06/24/17 06:06 97.7 18 97 06/23/17 05:41 Room Air I&O Intake and Output 06/24/17 07:00 Intake Total 1200 ml Balance 1200 ml Intake Oral 1200 ml Labs: Laboratory Tests Test 06/24/17 06:44 White Blood Count 6.1 x10^3/uL (4.0-11.0) Red Blood Count 4.43 x10^6/uL (4.30-5.70) Hemoglobin 13.4 g/dL (13.0-17.5) Hematocrit 39.2 % (39.0-53.0) Mean Corpuscular Volume 89 fL (79-100) Mean Corpuscular Hemoglobin 30 pg (25-35) Mean Corpuscular Hemoglobin Concent 34 g/dL (31-37) Red Cell Distribution Width 14.4 % (11.5-14.5) Platelet Count 177 x10^3/uL (140-400) Neutrophils (%) (Auto) 63 % (31-73) Lymphocytes (%) (Auto) 26 % (24-48) Monocytes (%) (Auto) 7 % (0-9) Eosinophils (%) (Auto) 4 % (0-3) H Basophils (%) (Auto) 1 % (0-3) Neutrophils # (Auto) 3.8 x10^3uL (1.8-7.7) Lymphocytes # (Auto) 1.6 x10^3/uL (1.0-4.8) Monocytes # (Auto) 0.4 x10^3/uL (0.0-1.1) Eosinophils # (Auto) 0.2 x10^3/uL (0.0-0.7) Basophils # (Auto) 0.0 x10^3/uL (0.0-0.2) Prothrombin Time 22.5 SEC (9.4-11.4) H Prothrombin Time INR 2.2 (0.9-1.1) H Sodium Level 142 mmol/L (136-145) Potassium Level 4.4 mmol/L (3.5-5.1) Chloride Level 106 mmol/L (98-107) Carbon Dioxide Level 27 mmol/L (21-32) Anion Gap 9 (6-14) Blood Urea Nitrogen 28 mg/dL (8-26) H Creatinine 1.5 mg/dL (0.7-1.3) H Estimated GFR (Cockcroft-Gault) 44.9 BUN/Creatinine Ratio 19 (6-20) Glucose Level 92 mg/dL (70-99) Calcium Level 8.9 mg/dL (8.5-10.1) Total Bilirubin 0.8 mg/dL (0.2-1.0) Aspartate Amino Transferase (AST) 26 U/L (15-37) Alanine Aminotransferase (ALT) 27 U/L (16-63) Alkaline Phosphatase 105 U/L (46-116) Total Protein 7.3 g/dL (6.4-8.2) Albumin 3.7 g/dL (3.4-5.0) Albumin/Globulin Ratio 1.0 (1.0-1.7) Current Medications: Meds: Current Medications Acetaminophen (Tylenol) 650 mg PRN Q6HRS PRN PO PAIN / TEMP; Start 06/16/17 at 16:30; Stop 06/24/17 at 15:06; Status DC Multi-Ingredient Ointment (Analgesic [place]) 1 pavel PRN QID PRN TP MUSCLE PAIN; Start 06/16/17 at 16:30; Stop 06/24/17 at 15:06; Status DC Al Hydroxide/Mg Hydroxide (Mylanta Plus Xs) 15 ml PRN AFTMEALHC PRN PO DYSPEPSIA; Start 06/16/17 at 16:30; Stop 06/24/17 at 15:06; Status DC Magnesium Hydroxide (Milk Of Magnesia) 2,400 mg PRN QHS PRN PO CONSTIPATION; Start 06/16/17 at 16:30; Stop 06/24/17 at 15:06; Status DC Isosorbide Mononitrate (Imdur) 30 mg DAILY PO Last administered on 06/24/17at 08 :07; Start 06/17/17 at 09:00; Stop 06/24/17 at 15:06; Status DC Nitroglycerin (Nitrostat) 0.4 mg PRN Q5MIN PRN SL CHEST PAIN; Start 06/16/17 at 17:30; Stop 06/24/17 at 15:06; Status DC Aspirin (Children'S Aspirin) 81 mg DAILYWBKFT PO Last administered on at 08:08; Start 06/17/17 at 08:00; Stop 06/24/17 at 15:06; Status DC Carvedilol (Coreg) 6.25 mg DAILY08 PO Last administered on 06/24/17at 08:07; Start 06/17/17 at 08:00; Stop 06/24/17 at 15:06; Status DC Diltiazem HCl (Cardizem 24hr Cd) 180 mg DAILY PO Last administered on at 08:08; Start 06/17/17 at 09:00; Stop 06/24/17 at 15:06; Status DC Pantoprazole Sodium (Protonix) 40 mg DAILYAC PO Last administered on 06/24/17at 08:08; Start 06/17/17 at 07:30; Stop 06/24/17 at 15:06; Status DC Trazodone HCl (Desyrel) 100 mg QHS PO Last administered on 06/23/17at 20:40; Start 06/16/17 at 21:00; Stop 06/24/17 at 15:06; Status DC Warfarin Sodium (Coumadin) 5 mg DAILY@1600 PO Last administered on 06/17/17at 16 :11; Start 06/16/17 at 19:30; Stop 06/18/17 at 10:25; Status DC Warfarin Sodium (Coumadin Per Pharmacy) 1 each PRN DAILY PRN MC SEE COMMENTS Last administered on 06/24/17at 12:51; Start 06/16/17 at 18:00; Stop 06/24/17 at 15:06; Status DC Sertraline HCl (Zoloft) 25 mg DAILY PO Last administered on 06/19/17at 09:07; Start 06/18/17 at 09:00; Stop 06/19/17 at 18:40; Status DC Warfarin Sodium (Coumadin) 3 mg 1X WARF ONCE PO Last administered on at 17:02; Start 06/18/17 at 16:00; Stop 06/18/17 at 16:01; Status DC Warfarin Sodium (Coumadin) 4 mg 1X WARF ONCE PO Last administered on at 16:58; Start 06/19/17 at 16:00; Stop 06/19/17 at 16:01; Status DC Sertraline HCl (Zoloft) 50 mg DAILY PO Last administered on 06/21/17at 08:27; Start 06/20/17 at 09:00; Stop 06/21/17 at 13:12; Status DC Warfarin Sodium (Coumadin) 4 mg DAILY16 PO Last administered on 06/21/17at 16:21 ; Start 06/20/17 at 16:00; Stop 06/22/17 at 07:57; Status DC Sertraline HCl (Zoloft) 75 mg DAILY PO Last administered on 06/24/17at 08:07; Start 06/22/17 at 09:00; Stop 06/24/17 at 15:06; Status DC Warfarin Sodium (Coumadin) 2 mg 1X WARF ONCE PO Last administered on at 16:34; Start 06/22/17 at 16:00; Stop 06/22/17 at 16:01; Status DC Warfarin Sodium (Coumadin) 3 mg 1X WARF ONCE PO Last administered on at 17:40; Start 06/23/17 at 16:00; Stop 06/23/17 at 16:09; Status DC Warfarin Sodium (Coumadin) 3 mg 1X WARF ONCE PO Last administered on at 14:25; Start 06/24/17 at 14:00; Stop 06/24/17 at 14:01; Status DC Active Scripts Active Reported Warfarin Sodium 3 Mg Tablet 3 Mg PO DAILY16 Sertraline Hcl 50 Mg Tablet 75 Mg PO DAILY Milk Of Magnesia (Magnesium Hydroxide) 2,400 Mg/10 Ml Oral.susp 2,400 Mg PO PRN QHS PRN Maalox Maximum Strength Susp (Mag Hydrox/Al Hydrox/Simeth) 355 Ml Oral.susp 15 Ml PO PRN AFTMEALHC PRN Tylenol (Acetaminophen) 325 Mg Tablet 650 Mg PO PRN Q6HRS PRN Trazodone Hcl 100 Mg Tablet 100 Mg PO QHS Diltiazem 24HR Cd (Diltiazem Hcl) 180 Mg Cap.er.24h 180 Mg PO DAILY Protonix (Pantoprazole Sodium) 40 Mg Tablet.dr 40 Mg PO DAILYAC NITROGLYCERIN SubLingual (Nitroglycerin) 0.4 Mg Tab.subl 0.4 Mg SL PRN Q5MIN PRN Isosorbide Mononitrate Er (Isosorbide Mononitrate) 30 Mg Tab.er.24h 30 Mg PO DAILY Carvedilol 6.25 Mg Tablet 6.25 Mg PO DAILY08 Aspirin 81 Mg Tab.chew 81 Mg PO DAILY I have reviewed the current psychotropics carefully including drug interactions. Risk benefit ratio favors no change other than as noted in my dictated progress note. Diagnosis: Problems: (1) Anxiety disorder (2) MDD (major depressive disorder) HEMANT GUO MD June 24, 2017 19:05
--- NOTE | 2017-06-25 04:35 | DS ---
DATE OF DISCHARGE: 06/24/2017 This note covers elements not covered in my initial note of 06/24. REASON FOR ADMISSION: Please refer to the admission history for details. Briefly, the patient is an 81-year-old male referred via the Emergency Room where he is referred from home after he made a suicidal plan to use a kitchen knife to end his life. His reportedly is on hospice and the patient is extremely overwhelmed at her impending loss. He stated he was 16 when he met her and she was 14. They were when he was 19 and she was 17 and having her leave him was incomprehensible for him. Reportedly, he had an argument with her son-in-law, was delusional, paranoid towards the family, extremely suspicious and anxious. He had failed outpatient psychiatric interventions resulting in this referral. SIGNIFICANT FINDINGS AND CLINICAL COURSE: Following admission, the patient was seen daily individually by myself from a psychiatric standpoint, medical followup per Dr. Hurtado/Dr. Alberto. The patient was extremely depressed, anxious and withdrawn. He was started on Zoloft, gradually increased to 75 mg a day. He was having significant insomnia. He has responded to trazodone 100 mg at bedtime. I met with him daily individually. Gradually, his mood appeared to improve with no suicidal ideation. Prior to discharge, 06/24, no CV, , pulmonary, eye, ENT system symptoms on review, reliability fair. MENTAL STATUS EXAM: Oriented to himself and situation. Speech is coherent, has some latency. Abstraction fair, computation impaired, language function intact, attention span short. Mood and affect remained somewhat dysphoric, but much improved. No suicidal ideation at discharge. CONDITION AT DISCHARGE: Improved. FINAL DIAGNOSES: Major depressive disorder in partial remission, adjustment disorder with depressed mood and anxiety in partial remission; anxiety disorder, unspecified; impulse control disorder, unspecified. Rest unchanged from admission. DISCHARGE MEDICATIONS: Please refer to the EMRAD. DISCHARGE INSTRUCTIONS: Outpatient psychiatric and medical followup was arranged prior to discharge. Time for discharge day management greater than 30 minutes. MAN Jeffrey GUO MD DR: MARVIN/ting JOB#: [id number] / [id number]
--- NOTE | 2017-06-25 21:02 | PN ---
DATE: 06/23/2017 This is a late entry of 06/23/2017 covers elements not covered in my initial note of 06/23/2017. SUBJECTIVE: I met with the patient in the evening. The patient remains somewhat withdrawn, at times anxious, wanting to leave. Processed this with him. REVIEW OF SYSTEMS: No CV, , pulmonary, eye, ENT system symptoms on review. Denies suicidal ideation. MENTAL STATUS EXAM: Oriented to himself and situation. Speech coherent, has some latency. Abstraction fair, computation impaired, language function intact, attention span short. Mood and affect showing improvement. No active suicidal ideation. LABORATORY DATA: Reviewed. IMPRESSION: Unchanged from initial note. PLAN: Continue Zoloft and trazodone at current dosage. Discharge to outpatient treatment on 06/24/2017. MAN Jeffrey GUO MD DR: MARVIN/ting JOB#: [id number] / [id number]
--- NOTE | 2017-06-27 17:16 | EKG ---
[address] [address] Test Date: 2017-06-18 Test Time: 21:06:00 Pat Name: DEISY PIPER Department: Room: [address] [place] [address] Gender: M Visitor Services Specialist: : [id number] Requested By: HEMANT GUO Order Number: [id number] Reading MD: Measurements Intervals Vichy Rate: P: PA: QRS: QRSD: T: QT: QTc: Interpretive Statements
== END 2017-06-24 14:30 | disposition home or self-care (01) | DRG 885 ==
LOC: GEROPSY 15:30
PROVIDERS: ADMIT Psychiatry & Neurology Psychiatry; ATTEND Psychiatry & Neurology Psychiatry
DX: F33.9 Major depressive disorder, recurrent, unspecified (principal); I11.0 Hypertensive heart disease with heart failure; I48.91 Unspecified atrial fibrillation; I50.9 Heart failure, unspecified; F43.23 Adjustment disorder with mixed anxiety and depressed mood; E78.5 Hyperlipidemia, unspecified; Z96.653 Presence of artificial knee joint, bilateral; G47.00 Insomnia, unspecified; F63.9 Impulse disorder, unspecified; Z86.73 Personal history of transient ischemic attack (TIA), and cerebral infarction without residual deficits; Z95.1 Presence of aortocoronary bypass graft; Z88.8 Allergy status to other drugs, medicaments and biological substances
CPT/HCPCS: 36415; 80053; 80061; 82306; 82607; 83036; 83540; 83550; 83735; 84436; 84443; 84480; 85025; 85027; 85610; 86593; 93005; 97110; 97530